=== PATIENT | female | born 1990 ===

== ENCOUNTER 2017-06-30 13:15 | Inpatient (IN) | payer OTHER ==
[~2017-06-30] VITALS: Ht 157.5 cm; Wt 71.2 kg
[2017-07-13] MEDS ORDERED: KEFLEX500 MG PO (14:48)
[2017-07-20] MEDS ORDERED: PRENATAL TABLE1 EAC4 PO (15:46)
== END 2017-07-23 13:47 | DRG 775 ==
LOC: OB/GYN 07-19 13:15 → LDR 07-20 14:12 → OB/GYN 07-21 21:32
PROC: 4A1HXCZ Monitoring of Products of Conception, Cardiac Rate, External Approach (ICD-10-PCS; 2017-07-20)
PROC: 3E033VJ Introduction of Other Hormone into Peripheral Vein, Percutaneous Approach (ICD-10-PCS; 2017-07-20)
PROC: 0HQ9XZZ Repair Perineum Skin, External Approach (ICD-10-PCS; principal; 2017-07-21)
PROC: 10E0XZZ Delivery of Products of Conception, External Approach (ICD-10-PCS; 2017-07-21)
DX: O70.1 Second degree perineal laceration during delivery (principal); O48.0 Post-term pregnancy; Z3A.40 40 weeks gestation of pregnancy; Z37.0 Single live birth